=== PATIENT | female | born 1990 | race Caucasian/White ===

== ENCOUNTER 2024-07-27 02:05 | Emergency (ER) | payer BC ==
[~2024-07-27] VITALS: Ht 165.1 cm; Wt 62.6 kg
[2024-07-27] MEDS ORDERED: VALA10002 PO (02:23)
[2024-07-27] MEDS ORDERED: FLUO10CA26 PO (02:23)
[2024-07-27] MEDS ORDERED: FAMOTIDINE 20 MG TABLET ONE (02:41)
[2024-07-27] MEDS ORDERED: SIMETHICONE 80 MG TAB.CHEW ONE (02:41)
[2024-07-27] MEDS: SIMETHICONE 80 MG TAB.CHEW PO ONE (02:44)
[2024-07-27] MEDS: FAMOTIDINE 20 MG TABLET PO ONE (02:44)
[2024-07-27 02:57] LABS: BASOPHILS % (AUTO) 0.3 % (0.0-2.0); EOSINOPHILS # (AUTO) 0.2 K/uL (0.0-0.7); EOSINOPHILS % (AUTO) 2.9 % (0.0-7.0); HEMATOCRIT 35.9 % (31.2-41.9); HEMOGLOBIN 12.1 g/dL (10.9-14.3); LYMPHOCYTES # (AUTO) 2.1 K/uL (0.8-4.8); LYMPHOCYTES % (AUTO) 25.9 % (20.5-51.5); MEAN CORPUSCULAR HEMOGLOBIN 28.8 uug (24.7-32.8); MEAN CORPUSCULAR HGB CONC 34 g/dL (32.3-35.6); MEAN CORPUSCULAR VOLUME 85.7 fL (75.5-95.3); MONOCYTES # (AUTO) 0.8 K/uL (0.1-1.30); MONOCYTES % (AUTO) 9.8 % (0.0-11.0); NEUTROPHILS % (AUTO) 61.1 % (38.5-71.5); PLATELET COUNT (AUTO) 194 K/uL (179-408); RED BLOOD CELL COUNT(AUTO) 4.19 MIL/uL (3.63-4.92); RED CELL DISTRIBUTION WIDTH 13.3 % (12.3-17.7); WHITE BLOOD COUNT (AUTO) 8.1 K/uL (3.8-11.8)
[2024-07-27 03:01] LABS: *BILIRUBIN,URIN NEGATIVE (NEGATIVE); *BLOOD, URINE NEGATIVE (NEGATIVE); *CLARITY,URINE CLEAR (CLEAR); *COLOR,URINE YELLOW (YELLOW); *KETONES,URINE NEGATIVE (NEGATIVE); *PROTEIN,URINE NEGATIVE (NEGATIVE); *UROBILINOGEN,URINE 0.2 E.U./dl (NORMAL); LEUKOCYTE ESTERASE ,URINE 1+ (NEGATIVE); NITRITE, URINE NEGATIVE (NEGATIVE); UGLUCOSE NEGATIVE (NEGATIVE)
[2024-07-27 03:10] LABS: CALCIUM 8.3 mg/dL (8.5-10.1); CREATININE 0.6 mg/dL (0.6-1.3); POTASSIUM 3.9 mmol/L (3.5-5.1)
[2024-07-27 03:16] LABS: ALBUMIN 3.5 g/dL (3.4-5.0); BILIRUBIN,TOTAL 0.2 mg/dL (0.2-1.0); TOTAL PROTEIN, SERUM 7.4 g/dL (6.4-8.2)
[2024-07-27 03:38] LABS: BACTERIA,URINE MODERATE /HPF (NONE SEEN); RBC,URINE 0-3 /HPF (0-3); SQUAMOUS EPITHELIAL CELL,UR MODERATE /HPF (NONE SEEN)
[2024-07-27 03:45] LABS: YEAST,URINE PSEUDOHYPHAE /HPF (NONE SEEN)
[2024-07-27] MEDS ORDERED: CEPH500C2 PO (04:12)
[2024-07-27 04:17] VITALS: BP 108/77; O2SAT 100
== END 2024-07-27 04:18 | disposition home or self-care (01) ==
LOC: ER 02:20
DX: O23.41 Unspecified infection of urinary tract in pregnancy, first trimester (principal); R10.12 Left upper quadrant pain; O26.891 Other specified pregnancy related conditions, first trimester; R10.2 Pelvic and perineal pain; F32.A Depression, unspecified; Z3A.01 Less than 8 weeks gestation of pregnancy; Z79.899 Other long term (current) drug therapy
CPT/HCPCS: 36415; 83690; 85025; A4606; A4663